=== PATIENT | female | born 1970 | race Native Hawaiian/Other Pacific Islander ===

== ENCOUNTER 2020-07-10 13:13 | Emergency (ER) | payer OTHER ==
[~2020-07-10] VITALS: Ht 170.2 cm; Wt 72.6 kg
[2020-07-10 13:18] VITALS: TEMP 98
[2020-07-10] MEDS ORDERED: DIVA500T2 PO (13:45)
[2020-07-10 14:09] LABS: PLATELET COUNT 242 K/uL (152-353)
[2020-07-10 14:23] LABS: POTASSIUM 4.2 mmol/L (3.6-5.2); SODIUM 140 mmol/L (136-145)
[2020-07-10 15:30] VITALS: BP 129/93
== END 2020-07-10 15:40 | disposition home or self-care (01) ==
LOC: ED 13:13
PROVIDERS: Emergency Medicine Emergency Medical Services
DX: R09.1 Pleurisy (principal); F15.10 Other stimulant abuse, uncomplicated; Z03.818 Encounter for observation for suspected exposure to other biological agents ruled out
CPT/HCPCS: 80053; 80164; 80307; 84484; 85027; 87635; 93005; 96360; 96375; 99284; J2930; U0003